=== PATIENT | female | born 1945 | race Caucasian/White ===

== ENCOUNTER → 2017-04-19 19:50 | Emergency (ER) | payer MEDICARE, BC ==
[~2017-04-19 19:50] MED LIST: Lidocaine 1%* 5 ML VIAL INJ ONE
--- OUTSIDE RECORDS SUMMARY | 2017-04-19 20:04 | XMS REPORT ---
:1945 External Reference #:[id number] Author Organization [facility] Address [address] [place] [address] Phone [phone] Care Team Providers Name Role Phone Hemanth Mederos M.D. Care Team Information Longitudinal Float Operator Unavailable Payers Type Date Identification Numbers Payment Provider Subscriber Medicare Primary Effective: Policy Number: Medicare - Bswnini Stout 2012 [id number] [facility] PayID: [id number] [address] [place] [address] [facility] Part [facility] Policy Number: [id number] [facility] Jose Elias [facility] Name: [facility] [address] PayID: [id number] [place] [address] Problems Date Description Provider Status Onset: 02/05/2011 Depressive disorder Hemanth Mederos M.D. Active Family History Date Family Member(s) Problem(s) Comments Father Diabetes Father CVA h/o multiple CVA's- age 74 Father Osteoarthritis Mother Hypertension Mother Osteoarthritis h/o hip replacement (for arthritis, not for fracture) Mother Osteoporosis probable Mother Mitral Valve Disorder prolapse Mother Dementia senile Children 2 adopted son and daughter Siblings 2 1 brother, 1 sister First Brother Osteoarthritis h/o knee replacement First Sister Osteoarthritis First Sister Mitral Valve Disorder prolapse Maternal Grandfather around age 94 old age Maternal Grandmother Cancer, Colon possible, not sure-- age 79 Social History Type Date Description Comments Lives With 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 Cigarette Use Never Smoked Cigarettes Smoking Patient has never smoked Allergies, Adverse Reactions, Alerts Date Description Reaction Status Severity Comments 11/18/2006 Codeine active Mild n/v 07/12/2015 Bee Sting active Moderate to Severe typically large local reaction, once had hives 12/16/2016 Sulfamethoxazole/Trim active Moderate N/V, Extreme ethoprim Fatigue Medications Medication Date Status Form Strength Qnty SIG Indications Ordering Provider Flonase Allergy 03/31 Active Suspension 50mcg/Act 9.900 1 to 2 J06.9 ml sprays in Shortle, both nares BLOCK CUTTER once a day for no more than one week. Psyllium Husk 08/25 Active Powder Thomas Mederos M.D. Venlafaxine HCL 07/29 Active Caps ER 37.5mg 90cap Take One 24HR s Capsule By P. Mouth Every Blegen, Other Day M.D. Alternating With The 75 MG Dose as Directed Flaxseed Oil 01/28 Active Capsules 1000mg 1 by mouth every day Thomas Mederos M.D. Vitamin D3 09/03 Active Capsules 1000Unit 2 by mouth every day Thomas Mederos M.D. Vitamin B-12 04/26 Active Tablets Sub 1000mcg 1 PO Every Other Day Thomas Mederos M.D. Effexor XR 12/17 Active Caps ER 75mg 90cap Take One 24HR s Capsule By P. Mouth Every Blegen, Day M.DAnitha Eye Vitamins Active Tablets (Areds + Unknown /0000 other vitamin) Azithromycin 03/31 Hx Tablets 250mg 6tabs 2 tabs J06.9 today. 1 tab Shortle, - daily for BLOCK CUTTER 04/07 following 4 days. Doxycycline 01/03 Hx Capsules 100mg 2caps 2 tab by S40.261A Shawnti Monohydrate /2016 mouth now Collin Andino, - ANALYSIS ANALYST-C 02/02 Sulfamethoxazol 11/10 Hx Tablets 800-160mg 14tab 1 by mouth Hemanth e/Trimethoprim s twice a day P. DS - x 7 days for Blegen, 12/14 uti- please M.DAnitha /2016 fill now Cephalexin 11/11 Hx Tablets 500mg 21tab take 1 s tablet by Santo, - mouth three ANALYSIS ANALYST-C 01/28 times a day x 7 days Prednisone 11/01 Hx Tablets 20mg 10tab take 2 tabs L23.9 s by mouth Santo, - every day x ANALYSIS ANALYST-C 01/28 5 Mupirocin 11/01 Hx Ointment 2% 22gm apply a L23.9 small amount Santo, - to affected ANALYSIS ANALYST-C 01/28 area(s) daily Sudafed 10/14 Hx Tablets 30mg 30tab 1 tab by Sara Stone s mouth three [place]ks - times a day , 11/01 pressure Augmentin 10/14 Hx Tablets 875-125mg 14tab 1 take by Sara Stone s mouth tablet [place]ks - every 12 , 11/01 hours for days for infection Zostavax 09/03 Hx Solution [id number]/ 1unit shingles Rec 0.65ML s vaccine as P. - directed Blegen, 01/28 M.D. Calcium 500+D 12/22 Hx Tablets 500-200mg 1 PO qd -Unit P. - Blegen, 08/25 M.D. Fish Oil 02/10 Hx Capsules P. - Blegen, 01/28 M.D. Flaxseed Oil 02/10 Hx Capsules 1 po qd P. - Blegen, 12/22 M.D. Venlafaxine HCL 02/13 Hx Tablets ER 37.5mg 180ta One To Two 24HR bs PO qd as P. - Directed Blegen, 12/17 M.D. Venlafaxine HCL 05/02 Hx Tablets 37.5mg 60tab one po bid s then taper P. - off as Blegen, 02/12 directed M.D. Effexor 11/20 Hx Tablets 37.5mg 30tab 1 po qd Coretta s A. - Gema, 05/02 F.N.P.C. /2009 Effexor 03/09 Hx Tablets 37.5mg 30tab 1 po bid x 1 s week then 1 P. - po qd x 1 Blegen, 05/26 week then M.D. 1/2 po qd x 1 week then 1/2 po qod x 1 week Nystatin 11/18 Hx Cream 100,000Un 30gm Apply To 112.9 Coretta its/GM Affected A. - Area bid To Gema, 07/17 tid After F.N.P.C. Cleasnsing And Drying Well Triaminicolone 11/18 Hx 30gm apply bid to 782.1 Coretta 1% Cream /2006 affected A. - areas Gema, 07/17 F.N.P.C. Effexor XR 02/25 Hx Capsules 37.5mg 90cap one po qd In s Addition To P. - 75 MG as Blegen, 02/17 Directed M.D. Effexor XR 03/29 Hx Capsules 75mg 90cap one qd s Felicia Melara, 02/12 M.D. Effexor XR 12/16 Hx Capsules 37.5mg 60cap One To Two s PO qd as P. - Directed Blegen, 03/29 M.D. Claritin D 12 10/25 Hx 12Hour 60uni 1 PO Q ts Hours prn P. - Allergic Blegen, 07/17 Rhinitis M.D. Nasonex Nasal 10/25 Hx Inhaler 17Gra 2 Sprays Hemanth Inhaler m Each Nostril P. - Daily Blegen, 07/17 M.D. Effexor 09/13 Hx 37.5mg 30uni one po bid ts for 1 week P. - then one po Blegen, 07/09 qd for 1 M.D. /2004 wk, then one po qod for 1 week Premarin 00 Hx Tablets 0.625mg 1 PO qd Unknown /0000 - 02/05 Immunizations CPT Code Status Date Vaccine Lot # 11974 Given 12/16/2016 Influenza Vaccine High Dose PF [id number] 47401 Given 01/29/2016 Influenza Vaccine High Dose PF [id number] 69604 Given 09/04/2015 Zoster Vaccine 06165 Given 07/12/2015 Tdap (Adacel) [id number] 27174 Given 07/12/2015 Prevnar-13 Pneumococcal Conjugate Vaccine [id number] 77275 Given 01/29/2015 Influenza Virus Vaccine, Quadrivalent, 3 Yr > Quad, Preserv Free 96757 Given 01/23/2014 Pneumovax 23 (PPSV23) 65+ years or high risk 2 to 64 year old 11603 Given 12/22/2012 Influenza Vaccine-Preservative Free 3 Yrs And [id number] Above Vital Signs Date Vital Result Comment 04/07/2017 Weight 148.00 lb Weight in kg's 67.133 BP Systolic 110 mmHg BP Diastolic 70 mmHg Heart Rate 72 /min Body Temperature 97.7 F Respiratory Rate 14 /min 03/31/2017 Weight 148.00 lb Weight in kg's 67.133 BP Systolic 110 mmHg BP Diastolic 70 mmHg Heart Rate 74 /min Body Temperature 96.9 F Respiratory Rate 14 /min O2 % BldC Oximetry 98 % 01/03/2017 Weight 145.00 lb Weight in kg's 65.772 Heart Rate 100 /min Respiratory Rate 18 /min O2 % BldC Oximetry 97 % 12/16/2016 Weight 142.00 lb Weight in kg's 64.411 BP Systolic 122 mmHg BP Diastolic 80 mmHg Heart Rate 84 /min Body Temperature 97.8 F Respiratory Rate 16 /min 11/10/2016 Weight 143.00 lb Weight in kg's 64.865 BP Systolic 110 mmHg BP Diastolic 72 mmHg Heart Rate 72 /min Body Temperature 97.8 F Respiratory Rate 16 /min 08/27/2016 Weight 145.00 lb Weight in kg's 65.772 BP Systolic 100 mmHg BP Diastolic 70 mmHg Heart Rate 63 /min Body Temperature 97.5 F Respiratory Rate 12 /min 07/29/2016 Weight 145.00 lb Weight in kg's 65.772 BP Systolic 122 mmHg BP Diastolic 78 mmHg Heart Rate 64 /min Body Temperature 97.0 F Respiratory Rate 20 /min Height 60 inches 5'0" BMI (Body Mass Index) 28.3 kg/m2 01/29/2016 BP Systolic 121 mmHg BP Diastolic 77 mmHg Heart Rate 68 /min Body Temperature 97.1 F 11/12/2015 Weight 145.00 lb Weight in kg's 65.772 BP Systolic 110 mmHg BP Diastolic 70 mmHg Heart Rate 60 /min Body Temperature 97.7 F Respiratory Rate 16 /min 11/02/2015 Weight 144.00 lb Weight in kg's 65.318 BP Systolic 138 mmHg BP Diastolic 78 mmHg Heart Rate 68 /min Body Temperature 97.7 F Respiratory Rate 16 /min O2 % BldC Oximetry 98 % 10/15/2015 Weight 145.00 lb Weight in kg's 65.772 BP Systolic 116 mmHg BP Diastolic 72 mmHg Heart Rate 75 /min Body Temperature 98.6 F O2 % BldC Oximetry 96 % 09/04/2015 Weight 146.00 lb Weight in kg's 66.226 BP Systolic 102 mmHg BP Diastolic 68 mmHg Heart Rate 80 /min 07/12/2015 Weight 149.00 lb Weight in kg's 67.586 BP Systolic 106 mmHg BP Diastolic 72 mmHg Heart Rate 60 /min Height 60 inches 5'0" BMI (Body Mass Index) 29.1 kg/m2 03/27/2015 Weight 144.00 lb Weight in kg's 65.318 BP Systolic 102 mmHg BP Diastolic 80 mmHg Heart Rate 56 /min 06/13/2014 Weight 148.00 lb Weight in kg's 67.133 BP Systolic 128 mmHg BP Diastolic 76 mmHg Heart Rate 64 /min 12/22/2013 Weight 143.00 lb Weight in kg's 64.865 BP Systolic 126 mmHg BP Diastolic 84 mmHg Heart Rate 72 /min Height 60 inches 5'0" BMI (Body Mass Index) 27.9 kg/m2 12/22/2012 Weight 144.00 lb Weight in kg's 65.318 BP Systolic 130 mmHg BP Diastolic 70 mmHg Heart Rate 68 /min 02/11/2012 Weight 146.00 lb Weight in kg's 66.226 BP Systolic 122 mmHg repeat 128/84 BP Diastolic 88 mmHg repeat 128/84 Heart Rate 60 /min Height 60 inches 5'0" BMI (Body Mass Index) 28.5 kg/m2 02/05/2011 Weight 140.00 lb Weight in kg's 63.504 BP Systolic 110 mmHg BP Diastolic 62 mmHg Heart Rate 60 /min Height 60 inches 5'0" BMI (Body Mass Index) 27.3 kg/m2 07/17/2010 Weight 143.00 lb Weight in kg's 64.865 BP Systolic 118 mmHg BP Diastolic 70 mmHg Heart Rate 64 /min Body Temperature 98.0 F 03/18/2010 Weight 142.00 lb Weight in kg's 64.411 BP Systolic 120 mmHg BP Diastolic 70 mmHg Heart Rate 80 /min 02/13/2010 Weight 140.00 lb Weight in kg's 63.504 BP Systolic 124 mmHg BP Diastolic 80 mmHg Heart Rate 68 /min 05/02/2009 Weight 147.00 lb Weight in kg's 66.679 BP Systolic 130 mmHg BP Diastolic 80 mmHg Heart Rate 68 /min 06/20/2008 Weight 144.00 lb Weight in kg's 65.318 BP Systolic 120 mmHg BP Diastolic 70 mmHg Heart Rate 76 /min 11/15/2007 Weight 143.00 lb Weight in kg's 64.865 BP Systolic 114 mmHg BP Diastolic 60 mmHg Heart Rate 60 /min 03/17/2007 BP Systolic 120 mmHg BP Diastolic 70 mmHg Body Temperature 98.7 F 03/09/2007 Weight 143.00 lb Weight in kg's 64.865 BP Systolic 104 mmHg BP Diastolic 64 mmHg Heart Rate 66 /min 02/17/2007 Weight 144.00 lb Weight in kg's 65.318 BP Systolic 110 mmHg BP Diastolic 74 mmHg Heart Rate 76 /min 11/18/2006 Weight 142.00 lb Weight in kg's 64.411 BP Systolic 110 mmHg BP Diastolic 62 mmHg Heart Rate 70 /min 06/30/2006 Weight 138.00 lb Weight in kg's 62.597 BP Systolic 110 mmHg BP Diastolic 60 mmHg Heart Rate 64 /min 02/25/2006 Weight 139.00 lb Weight in kg's 63.050 BP Systolic 110 mmHg BP Diastolic 60 mmHg Heart Rate 80 /min 12/24/2004 Weight 133.00 lb Weight in kg's 60.329 BP Systolic 122 mmHg BP Diastolic 80 mmHg 07/09/2004 Weight 137.00 lb Weight in kg's 62.143 BP Systolic 120 mmHg BP Diastolic 80 mmHg Body Temperature 97.0 F 09/26/2003 Weight 125.00 lb Weight in kg's 56.700 BP Systolic 118 mmHg BP Diastolic 61 mmHg Heart Rate 60 /min 06/28/2003 Weight 128.00 lb Weight in kg's 58.061 BP Systolic 123 mmHg BP Diastolic 69 mmHg Heart Rate 59 /min 11/29/2002 Weight 127.00 lb Weight in kg's 57.607 BP Systolic 104 mmHg BP Diastolic 64 mmHg 06/21/2002 Weight 128.00 lb Weight in kg's 58.061 BP Systolic 100 mmHg BP Diastolic 60 mmHg 10/25/2001 Weight 122.00 lb BP Systolic 100 mmHg BP Diastolic 70 mmHg Body Temperature 97.4 F 09/13/2001 Weight 125.50 lb BP Systolic 112 mmHg BP Diastolic 64 mmHg Heart Rate 66 /min Results Test Date Test Result H/L Range Note Urine DIP 04/07/2017 Leukocytes neg Neg Urine Nitrites neg Neg Urobilinogen norm Norm Total Protein, Urine trace Neg Urine pH 5 5-6 Urine Blood trace Neg Specific Dustin 1.020 1.01-1.02 Urine Ketones neg Neg Urine Bilirubin neg Neg Urine Glucose norm Norm Laboratory test finding 12/16/2016 Hepatitis C Antibody Nonreactive Nonreactive 1 Comp Metabolic Panel 12/16/2016 Sodium 137 mmol/L 133-145 Potassium 4.6 mmol/L 3.5-5.0 Chloride 101 mmol/L 101-111 Co2 Carbon Dioxide 32 mmol/L 22-32 Anion Gap 4 mmol/L 2-11 Glucose 83 mg/dL 70-100 Blood Urea Nitrogen 11 mg/dL 6-24 Creatinine 0.68 mg/dL 0.51-0.95 BUN/Creatinine Ratio 16.2 8-20 Calcium 10.1 mg/dL 8.6-10.3 Total Protein 6.7 g/dL 6.4-8.9 Albumin 4.2 g/dL 3.2-5.2 Globulin 2.5 g/dL 2-4 Albumin/Globulin Ratio 1.7 1-3 Total Bilirubin 0.40 mg/dL 0.2-1.0 Alkaline Phosphatase 104 U/L 34-104 Alt 22 U/L 7-52 Ast 26 U/L 13-39 Egfr Non- 86.0 >60 Egfr 110.7 >60 2 Laboratory test finding 12/16/2016 Urine Culture And SEE RESULT BELOW 3 Sensitivities Urine DIP 12/16/2016 Leukocytes neg Neg Urine Nitrites neg Neg Urobilinogen norm Norm Total Protein, Urine trace Neg Urine pH 5.0 5-6 Urine Blood neg Neg Specific Dustin 1.010 1.01-1.02 Urine Ketones neg Neg Urine Bilirubin neg Neg Urine Glucose norm Norm Laboratory test finding 11/10/2016 Urine Culture And SEE RESULT BELOW 4 Sensitivities Urine DIP 11/10/2016 Leukocytes +++ Neg Urine Nitrites neg Neg Urobilinogen neg Norm Total Protein, Urine neg Neg Urine pH 7.0 High 5-6 Urine Blood 250 High Neg Specific Dustin 1.000 Low 1.01-1.02 Urine Ketones neg Neg Urine Bilirubin neg Neg Urine Glucose neg Norm Laboratory test finding 11/04/2016 Calcium Ionized 5.15 mg/dL 4.65-5.28 Pthi 11/04/2016 Calcium (PTH Intact) 9.7 mg/dL 8.6-10.3 PTH Intact 8.2 pmol/L 1.3-9.3 Alkaline Phos Isoenzymes 08/27/2016 Alkaline Phosphatase 129 U/L 55 - 142 Alp Liver 1% 61.6 % 27.8-76.3 Alp Liver 1 79.5 IU/L 16.2-70.2 Alp Liver 2% 6.6 % 0.0-8.0 Alp Liver 2 8.5 IU/L 0.0-5.8 Alp Bone % 31.8 % 19.1-67.7 Alp Bone 41.0 IU/L 12.1-42.7 Alp Intestine % 0.0 % 0.0-20.6 Alp Intestine 0.0 IU/L 0.0-11.0 Alp Placental NotPresent 5 Laboratory test finding 08/27/2016 Calcium Ionized 5.00 mg/dL 4.65-5.28 Liver Function Panel 08/27/2016 Total Protein 7.2 g/dL 6.4-8.9 Albumin 4.4 g/dL 3.2-5.2 Globulin 2.8 g/dL 2-4 Albumin/Globulin Ratio 1.6 1-3 Total Bilirubin 0.60 mg/dL 0.2-1.0 Direct Bilirubin 0.10 mg/dL 0.03-0.18 Indirect Bilirubin 0.5 mg/dL 0.3-1.0 Alkaline Phosphatase 119 U/L High 34-104 Alt 20 U/L 7-52 Ast 22 U/L 13-39 Pthi 08/27/2016 Calcium (PTH Intact) 10.1 mg/dL 8.6-10.3 PTH Intact 9.3 pmol/L 1.3-9.3 Laboratory test finding 07/29/2016 TSH (Thyroid Stim Horm) 2.12 mcIU/mL 0.34-5.60 6 Free T4 (Free Thyroxine) 0.92 ng/dL 0.61-1.12 7 Vitamin D Total 25(Oh) 48.0 ng/mL 30-50 8 Vitamin B12 752 pg/mL 180-914 9 Comp Metabolic Panel 07/29/2016 Sodium 138 mmol/L 133-145 Potassium 5.0 mmol/L 3.5-5.0 Chloride 101 mmol/L 101-111 Co2 Carbon Dioxide 31 mmol/L 22-32 Anion Gap 6 mmol/L 2-11 Glucose 97 mg/dL 70-100 Blood Urea Nitrogen 15 mg/dL 6-24 Creatinine 0.72 mg/dL 0.51-0.95 BUN/Creatinine Ratio 20.8 High 8-20 Calcium 11.3 mg/dL High 8.6-10.3 Total Protein 7.7 g/dL 6.4-8.9 Albumin 4.6 g/dL 3.2-5.2 Globulin 3.1 g/dL 2-4 Albumin/Globulin Ratio 1.5 1-3 Total Bilirubin 0.60 mg/dL 0.2-1.0 Alkaline Phosphatase 126 U/L High 34-104 Alt 28 U/L 7-52 Ast 27 U/L 13-39 Egfr Non- 80.6 >60 Egfr 103.6 >60 10 CBC Auto Diff 07/29/2016 White Blood Count 4.9 10^3/uL 3.5-10.8 Red Blood Count 5.14 10^6/uL 4.0-5.4 Hemoglobin 14.5 g/dL 12.0-16.0 Hematocrit 44 % 35-47 Mean Corpuscular Volume 87 fL 80-97 Mean Corpuscular Hemoglobin 28 pg 27-31 Mean Corpuscular HGB Conc 33 g/dL 31-36 Red Cell Distribution Width 14 % 10.5-15 Platelet Count 269 10^3/uL 150-450 Mean Platelet Volume 8 um3 7.4-10.4 Abs Neutrophils 2.9 10^3/uL 1.5-7.7 Abs Lymphocytes 1.6 10^3/uL 1.0-4.8 Abs Monocytes 0.4 10^3/uL 0-0.8 Abs Eosinophils 0.1 10^3/uL 0-0.6 Abs Basophils 0 10^3/uL 0-0.2 Abs Nucleated RBC 0.01 10^3/uL Granulocyte % 58.2 % 38-83 Lymphocyte % 32.3 % 25-47 Monocyte % 7.2 % 1-9 Eosinophil % 1.4 % 0-6 Basophil % 0.9 % 0-2 Nucleated Red Blood Cells % 0.1 Lipid Profile (Trig/Chol/HDL) 07/29/2016 Triglycerides 90 mg/dL 11 Cholesterol 227 mg/dL 12 HDL Cholesterol 66.1 mg/dL 13 LDL Cholesterol 143 mg/dL 14 Laboratory test finding 07/29/2016 T3 Free 4.20 pg/mL High 2.5-3.9 15 Lipase 13 U/L 11.0-82.0 16 Amylase 53 U/L 29-103 17 Laboratory test 07/29/2016 Helico Pylori Negative Negative 18, 19 finding Antigen- Stool Laboratory test 01/29/2016 Vitamin B12 1103 pg/mL High 180-914 20 finding Vitamin D Total 25(Oh) 45.2 ng/mL 30-50 21 Lipid Profile (Trig/Chol/HDL) 01/18/2016 Triglycerides 106 mg/dL 22, 23 Cholesterol 209 mg/dL 22, 24 HDL Cholesterol 53.4 mg/dL 22, 25 LDL Cholesterol 134 mg/dL 22, 26 Comp Metabolic Panel 01/18/2016 Sodium 138 mmol/L 133-145 22 Potassium 4.3 mmol/L 3.5-5.0 22 Chloride 102 mmol/L 101-111 22 Co2 Carbon Dioxide 31 mmol/L 22-32 22 Anion Gap 5 mmol/L 2-11 22 Glucose 100 mg/dL 70-100 22 Blood Urea Nitrogen 16 mg/dL 6-24 22 Creatinine 0.73 mg/dL 0.51-0.95 22 BUN/Creatinine Ratio 21.9 High 8-20 22 Calcium 9.8 mg/dL 8.6-10.3 22 Total Protein 6.6 g/dL 6.4-8.9 22 Albumin 4.0 g/dL 3.2-5.2 22 Globulin 2.6 g/dL 2-4 22 Albumin/Globulin Ratio 1.5 1-3 22 Total Bilirubin 0.60 mg/dL 0.2-1.0 22 Alkaline Phosphatase 112 U/L High 34-104 22 Alt 18 U/L 7-52 22 Ast 19 U/L 13-39 22 Egfr Non- 79.3 >60 22 Egfr 102.0 >60 22, 27 Laboratory test 01/18/2016 Hemoglobin A1c 5.4 % Less than 22, 28 finding 6.0 Laboratory test 11/12/2015 Surgical Pathology SEE RESULT 29 finding BELOW Laboratory test 07/12/2015 Hemoglobin A1c (Glyco 5.4 % Less than 30 finding HGB) 6.0 Lipid Profile 07/12/2015 Triglycerides 99 mg/dL 31 (Trig/Chol/HDL) Cholesterol 235 mg/dL 32 HDL Cholesterol 63.7 mg/dL 33 LDL Cholesterol 152 mg/dL 34 Basic Metabolic Panel 07/02/2015 Sodium 140 mmol/L 133-145 Potassium 4.7 mmol/L 3.5-5.0 Chloride 105 mmol/L 101-111 Co2 Carbon Dioxide 29 mmol/L 22-32 Anion Gap 6 mmol/L 2-11 Glucose 109 mg/dL High 70-100 Blood Urea Nitrogen 19 mg/dL 6-24 Creatinine 0.76 mg/dL 0.51-0.95 BUN/Creatinine Ratio 25.0 High 8-20 Calcium 9.9 mg/dL 8.6-10.3 Egfr Non- 75.9 >60 Egfr 97.6 >60 35 Laboratory test finding 07/02/2015 Vitamin B12 808 pg/mL 180-914 36 TSH (Thyroid Stim Horm) 1.90 ?IU/mL 0.34-5.60 Free T4 (Free Thyroxine) 0.88 ng/dL 0.61-1.12 T3 Free 3.60 pg/mL 2.5-3.9 Vitamin D Total 25(Oh) 24.6 ng/mL Low 30-50 Laboratory test 04/26/2015 Cytology Non-Film Replacement Orderer SEE RESULT BELOW 37 finding Laboratory test 04/17/2015 TSH (Thyroid 2.42 ?IU/mL 0.34-5.60 finding Stimulating Horm) Free T3 3.50 pg/mL 2.5-3.9 Pthi 04/17/2015 Calcium (PTH Intact) 9.6 mg/dL 8.6-10.3 PTH Intact 8.8 pmol/L 1.3-9.3 Laboratory test finding 04/17/2015 Calcium Ionized 4.84 mg/dL 4.65-5.28 Protein Electrophoresis 04/17/2015 Total Protein(Pep) 6.7 g/dL 6.3 - 7.9 Albumin 3.4 g/dL 3.4-4.7 Alpha-1 Globulin 0.2 g/dL 0.1-0.3 Alpha-2 Globulin 0.9 g/dL 0.6-1.0 Beta Globulin 0.9 g/dL 0.7-1.2 Gamma Globulin 1.3 g/dL 0.6-1.6 Albumin/Globulin Ratio 1.02 Impression See Comment 38 Laboratory test finding 04/17/2015 Thyroperoxidase AB 1.24 IU/mL <9 Thyroglobulin Antibody <1.8 IU/mL <4.0 39 Laboratory test finding 03/27/2015 TSH (Thyroid Stim Horm) 1.45 ?IU/mL 0.34-5.60 Free T4 (Free Thyroxine) 1.04 ng/mL 0.61-1.12 Laboratory test finding 03/27/2015 Vitamin B12 257 pg/mL 180-914 40 Vitamin D Total 25(Oh) 30.0 ng/mL 30-50 T3 Free 4.80 pg/mL High 2.5-3.9 CBC Auto Diff 03/27/2015 White Blood Count 4.2 10^3/uL 3.5-10.8 Red Blood Count 5.24 10^6/uL 4.0-5.4 Hemoglobin 15.3 g/dL 12.0-16.0 Hematocrit 47 % 35-47 Mean Corpuscular Volume 89 fL 80-97 Mean Corpuscular Hemoglobin 29 pg 27-31 Mean Corpuscular HGB Conc 33 g/dL 31-36 Red Cell Distribution Width 13 % 10.5-15 Platelet Count 265 10^3/uL 150-450 Mean Platelet Volume 7 um3 Low 7.4-10.4 Abs Neutrophils 2.6 10^3/uL 1.5-7.7 Abs Lymphocytes 1.2 10^3/uL 1.0-4.8 Abs Monocytes 0.4 10^3/uL 0-0.8 Abs Eosinophils 0 10^3/uL 0-0.6 Abs Basophils 0 10^3/uL 0-0.2 Abs Nucleated RBC 0 10^3/uL Granulocyte % 61.9 % 38-83 Lymphocyte % 27.8 % 25-47 Monocyte % 8.5 % 1-9 Eosinophil % 1.1 % 0-6 Basophil % 0.7 % 0-2 Nucleated Red Blood Cells % 0.1 Comp Metabolic Panel 03/27/2015 Sodium 141 mmol/L 133-145 Potassium 4.8 mmol/L 3.5-5.0 Chloride 103 mmol/L 101-111 Co2 Carbon Dioxide 32 mmol/L 22-32 Anion Gap 6 mmol/L 2-11 Glucose 108 mg/dL High 70-100 Blood Urea Nitrogen 12 mg/dL 6-24 Creatinine 0.77 mg/dL 0.51-0.95 BUN/Creatinine Ratio 15.6 8-20 Calcium 10.7 mg/dL High 8.6-10.3 Total Protein 7.6 g/dL 6.4-8.9 Albumin 4.6 g/dL 3.2-5.2 Globulin 3.0 g/dL 2-4 Albumin/Globulin Ratio 1.5 1-3 Total Bilirubin 0.70 mg/dL 0.2-1.0 Alkaline Phosphatase 115 U/L High 34-104 Alt 22 U/L 7-52 Ast 26 U/L 13-39 Egfr Non- 74.8 >60 Egfr 96.2 >60 41 Urine DIP 02/05/2011 Leukocytes neg Neg Urine Nitrites neg Neg Urine pH 5-6 5-6 Total Protein, Urine trace Neg Urine Glucose norm Norm Urine Ketones neg Neg Urobilinogen norm Norm Urine Bilirubin neg Neg Urine Blood neg Neg Specific Dustin n/a Low 1.01-1.02 GFR (Calculated) 06/21/2008 GFR (Calculated) >60 42, 43 Laboratory test finding 06/21/2008 TSH (Thyrotropin) 1.780 uIU/ml 0.350- 5.500 42 T-4 Free 1.0 ng/dL 0.8-1.8 42 Magnesium 2.3 mg/dL 1.7-2.7 42 CBC 06/21/2008 WBC 5.9 x103 4.3-10.9 42 RBC 4.52 x106 3.80-5.30 42 Hemoglobin 13.1 g/dL 11.8-15.8 42 Hematocrit 39.8 % 35.0-47.0 42 MCV 88.1 fl 82.0-98.0 42 MCH 29.0 pg 27.5-33.5 42 MCHC 32.9 g/dL 32.0-36.0 42 RDW 13.4 % 11.5-14.5 42 Platelet Count 275 x103 130-400 42 MPV 9.9 fl 6.5-10.5 42 Segmented Neutrophils 61.4 % 44.0-74.0 42 Lymphocytes 28.8 % 15.0-45.0 42 Monocytes 8.3 % 2.0-13.0 42 Eosinophils 1.2 % 0.0-6.0 42 Basophils 0.3 % 0.0-2.0 42 Neutrophil Absolute 3.6 x103 1.4-7.0 42 Lymphocytes Absolute 1.7 x103 1.0-3.4 42 Monocyte Absolute 0.5 x103 0.2-1.0 42 Eosinophil Absolute 0.1 x103 0.0-0.5 42 Basophil Absolute 0.0 x103 0.0-0.2 42 Comprehensive Metabolic 06/21/2008 Glucose 94 mg/dL 70-100 42 BUN 17 mg/dL 4-18 42 Creatinine, Serum 1.0 mg/dL 0.5-1.2 42 Sodium 139 mmol/L 136-146 42 Potassium 4.6 mmol/L 3.5-5.3 42 Chloride 102 mmol/L 98-110 42 Carbon Dioxide 30 mmol/L 20-32 42 Albumin 4.3 g/dL 3.5-4.7 42 Protein, Total 7.4 g/dL 6.4-8.3 42 Calcium 10.7 mg/dL High 8.4-10.4 42 Alkaline Phosphatase 149 U/L High 10-118 42 Sgot (Ast) 36 U/L 3-40 42 SGPT (Alt) 32 U/L 7-50 42 Bilirubin, Total 0.30 mg/dL 0.30-1.20 42 Alkaline Phos Iso 03/22/2007 Alkaline Phosphatase, S 132 IU/L 25-150 Liver Fraction: 75 % 26-86 Bone Fraction: 25 % 11-68 Intestinal Frac.: 0 % 0-16 Laboratory test finding 03/09/2007 Surgical Pathology SEE NOTE 44 CBC W/Manual Diff 02/17/2007 Manual Differential PERFORMED WBC 5.3 x103 4.3-10.9 RBC 4.43 x106 3.80-5.30 Hemoglobin 12.7 g/dL 11.8-15.8 Hematocrit 38.3 % 35.0-47.0 MCV 86.5 fl 82.0-98.0 MCH 28.7 pg 27.5-33.5 MCHC 33.2 g/dL 32.0-36.0 RDW 13.3 % 11.5-14.5 Platelet Count 271 x103 130-400 MPV 10.4 fl 6.5-10.5 Comprehensive Metabolic 02/17/2007 Glucose 87 mg/dL 70-100 BUN 18 mg/dL 4-18 Creatinine, Serum 1.0 mg/dL 0.5-1.2 Sodium 140 mmol/L 136-146 Potassium 5.1 mmol/L 3.5-5.3 Chloride 103 mmol/L 98-110 Carbon Dioxide 28 mmol/L 20-32 Albumin 4.2 g/dL 3.5-4.7 Protein, Total 7.2 g/dL 6.4-8.2 Calcium 10.2 mg/dL 8.4-10.4 Alkaline Phosphatase 138 U/L High 10-118 Sgot (Ast) 30 U/L 3-40 SGPT (Alt) 28 U/L 7-50 Bilirubin, Total 0.20 mg/dL Low 0.30-1.20 Laboratory test finding 02/17/2007 TSH (Thyrotropin) 1.790 uIU/ml 0.350- 5.500 T-4 Free 0.9 ng/dL 0.8-1.8 Vitamin B-12 437 pg/mL 45 GFR (Calculated) >60 46 Feflex Diff+Morph For CBC4D 02/17/2007 Segmented Neutrophils 68.0 % 44.0- 74.0 Band 0.0 % 0.0-4.0 Lymphocytes 22.0 % 15.0-45.0 Monocytes 9.0 % 2.0-13.0 Eosinophils 1.0 % 0.0-6.0 Basophils 0.0 % 0.0-2.0 Neutrophil Absolute 3.6 x103 1.4-7.0 Lymphocytes Absolute 1.2 x103 1.0-3.4 Monocyte Absolute 0.5 x103 0.2-1.0 Eosinophil Absolute 0.1 x103 0.0-0.5 Basophil Absolute 0.0 x103 0.0-0.2 Laboratory test finding 12/24/2000 TSH (Thyrotropin) 1.48 uIU/ml 0.49 - 4.67 1 [id number] 2 Because ethnic data is not always readily available, this report includes an eGFR for both -Americans and non- Americans. The National Kidney Disease Education Program (NKDEP) does not endorse the use of the MDRD equation for patients that are not between the ages of 18 and 70, are , have extremes of body size, muscle mass, or nutritional status, or are non- or non-. According to the [employer], irrespective of diagnosis, the stage of the disease is based on the level of kidney function: Stage Description GFR(mL/min/1.73 m(2)) 1 Kidney damage with normal or decreased GFR 90 2 Kidney damage with mild decrease in GFR 60-89 3 Moderate decrease in GFR 30-59 4 Severe decrease in GFR 15-29 5 Kidney failure <15 (or dialysis) 3 SEE RESULT BELOW Name: LUDIVINA STOUT : [address]: Hemanth Mederos MD Acct: [id number] Unit: [id number] AGE: 70 Location: [facility] Re12/16/16 SEX: F Status: REG REF SPEC: [id number] SULLY: 12/16/16-[address] [facility] [address]: Hemanth Mederos MD REQ: [id number] RECD: 12/16/16 STATUS: KYLIE FERNÁNDEZ DR: Hardeep Palomo MD _ SOURCE: URINE SPDESC: ORDERED: Urine Culture COMMENTS: Copy Result to: HARDEEP PALOMO ([id number]) Urine Source: Random Procedure Result Reported Site Urine Culture Final 12/18/16- 925 ML No Growth (<1,000 CFU/mL) * ML - [facility] ([facility]) . END OF REPORT * ML=Testing performed at Main Lab DEPARTMENT OF PATHOLOGY, [address] [place] [address] Huang Multani M.D. Director [facility] # [id number] 4 SEE RESULT BELOW Name: LUDIVINA STOUT : [address]: Hemanth Mederos MD Acct: [id number] Unit: [id number] AGE: 70 Location: [facility] Re11/10/16 SEX: F Status: REG REF SPEC: [id number] SULLY: 11/10/16-[address] [facility] [address]: Hemanth Mederos MD REQ: [id number] RECD: 11/10/16 STATUS: COMP _ SOURCE: URINE SPDC: ORDERED: Urine Culture COMMENTS: [id number] Urine Source: Random Procedure Result Reported Site Urine Culture Final 11/12/16- 08 ML Organism 1 ESCHERICHIA COLI [place] Count 75-100,000 (Many) CFU/ML 1. ESCHERICHIA COLI [facility].I.C. RX --------- ------ Ampicillin <=2 S Cefazolin <=4 S Cefepime <=1 S Ceftriaxone <=1 S Ciprofloxacin <=0.25 S Gentamicin <=1 S Levofloxacin <=0.12 S Meropenem <=0.25 S Nitrofurantoin <=16 S Tetracycline <=1 S Pipercillin/Tazobactam <=4 S Trimethoprim/Sulfamethoxazole <=20 S Amoxicillin/Clavulanic Acid <=2 S Aztreonam <=1 S Contact the Microbiology Department for any additional antibiotic reporting. * ML - [facility] ([facility]) . END OF REPORT * ML=Testing performed at [facility] DEPARTMENT OF PATHOLOGY, [address] [place] [address] Huang Multani M.D. Director [facility] # [id number] 5 REFERENCE VALUE Not present Test Performed by: [address] [id number] 6 [id number] Normal Range 180 to 914 Indeterminate Range 145 to 180 Deficient Range <145 10 Because ethnic data is not always readily available, this report includes an eGFR for both -Americans and non- Americans. The National Kidney Disease Education Program (NKDEP) does not endorse the use of the MDRD equation for patients that are not between the ages of 18 and 70, are , have extremes of body size, muscle mass, or nutritional status, or are non- or non-. According to the National Kidney Foundation, irrespective of diagnosis, the stage of the disease is based on the level of kidney function: Stage Description GFR(mL/min/1.73 m(2)) 1 Kidney damage with normal or decreased GFR 90 2 Kidney damage with mild decrease in GFR 60-89 3 Moderate decrease in GFR 30-59 4 Severe decrease in GFR 15-29 5 Kidney failure <15 (or dialysis) 11 Desirable <150 Borderline high 150-199 High 200-499 Very High >500 12 Desirable <200 Borderline high 200-239 High >239 13 Low <40 Desirable: 40-60 High: >60 14 Desirable: <100 mg/dL Near Optimal: 100-129 mg/dL Borderline High: 130-159 mg/dL High: 160-189 mg/dL Very High: >189 mg/dL 15 [id number] 19 Test Performed by: [address] [id number] 20 Normal Range 180 to 914 Indeterminate Range 145 to 180 Deficient Range <145 21 [id number] PT IS FASTING 23 Desirable <150 Borderline high 150-199 High 200-499 Very High >500 24 Desirable <200 Borderline high 200-239 High >239 25 Low <40 Desirable: 40-60 High: >60 26 Desirable: <100 mg/dL Near Optimal: 100-129 mg/dL Borderline High: 130-159 mg/dL High: 160-189 mg/dL Very High: >189 mg/dL 27 Because ethnic data is not always readily available, this report includes an eGFR for both -Americans and non- Americans. The National Kidney Disease Education Program (NKDEP) does not endorse the use of the MDRD equation for patients that are not between the ages of 18 and 70, are , have extremes of body size, muscle mass, or nutritional status, or are non- or non-. According to the National Kidney Foundation, irrespective of diagnosis, the stage of the disease is based on the level of kidney function: Stage Description GFR(mL/min/1.73 m(2)) 1 Kidney damage with normal or decreased GFR 90 2 Kidney damage with mild decrease in GFR 60-89 3 Moderate decrease in GFR 30-59 4 Severe decrease in GFR 15-29 5 Kidney failure <15 (or dialysis) 28 Therapeutic target for the treatment of diabetes Mellitus patients is <7% HBA1C, and in selective patients <6.0%.Please refer to [place] [employer] Diabetic care guidelines for further information. 29 SEE RESULT BELOW Name: LUDIVINA STOUT : [address]: Nataly Richardson NP Acct: [id number] Unit: [id number] AGE: 69 Location: [facility] Re11/12/15 SEX: F Status: REG REF SPEC: [id number] SULLY: 11/12/[address]: Nataly Richardson NP REQ: [id number] RECD: 11/13/15-1208 STATUS: SOUT _ ORDERED: PASS STAIN, [facility], LEVEL IV COMMENTS: [id number] FINAL DIAGNOSIS Skin, left thigh, biopsy: -- Eosinophilic spongiotic dermatitis; see comment. COMMENT: The histologic differential diagnosis includes a hypersensitivity reaction to a medication or other internal antigen, contact dermatitis, reaction to arthropod assault, or an early lesion of pemphigus or bullous pemphigoid. Clinical-pathologic correlation is recommended. CLINICAL HISTORY Unresolved rash. GROSS DESCRIPTION The specimen is received in formalin with no source identified and a requisition labeled, Punch Biopsy Left Thigh, and consists of a 0.2 cm colón-white circular skin punch excised to a depth of 0.2 cm, which is submitted entirely in one cassette. MICROSCOPIC DESCRIPTION Histologic sections show a punch biopsy of skin excised to include deep reticular dermis. Basket weave orthokeratosis is present overlying epidermis with mild spongiosis. A subepidermal cleft is focally present containing fibrin and eosinophils. Occasional eosinophils are present in the epidermis. Papillary dermal edema is present along with a perivascular inflammatory infiltrate composed of lymphocytes and eosinophils. Deeper levels of sectioning show similar histologic features. GMS and PAS stains, with appropriately reacting controls, are negative for fungal organisms. Signed (signature on file) Silvia Diaz MD 02/19 1100 END OF REPORT * ML=Testing performed at Main Lab DEPARTMENT OF PATHOLOGY, [address] [place] [address] Huang Multani M.D. Director [facility] # [id number] 30 Therapeutic target for the treatment of diabetes Mellitus patients is <7% HBA1C, and in selective patients <6.0%.Please refer to [place] [employer] Diabetic care guidelines for further information. 31 Desirable <150 Borderline high 150-199 High 200-499 Very High >500 32 Desirable <200 Borderline high 200-239 High >239 33 Low <40 Desirable: 40-60 High: >60 34 Desirable: <100 mg/dL Near Optimal: 100-129 mg/dL Borderline High: 130-159 mg/dL High: 160-189 mg/dL Very High: >189 mg/dL 35 Because ethnic data is not always readily available, this report includes an eGFR for both -Americans and non- Americans. The National Kidney Disease Education Program (NKDEP) does not endorse the use of the MDRD equation for patients that are not between the ages of 18 and 70, are , have extremes of body size, muscle mass, or nutritional status, or are non- or non-. According to the National Kidney Foundation, irrespective of diagnosis, the stage of the disease is based on the level of kidney function: Stage Description GFR(mL/min/1.73 m(2)) 1 Kidney damage with normal or decreased GFR 90 2 Kidney damage with mild decrease in GFR 60-89 3 Moderate decrease in GFR 30-59 4 Severe decrease in GFR 15-29 5 Kidney failure <15 (or dialysis) 36 Normal Range 180 to 914 Indeterminate Range 145 to 180 Deficient Range <145 37 SEE RESULT BELOW Name: LUDIVINA STOUT : [address]: Fausto Ramesh MD Acct: [id number] Unit: [id number] AGE: 69 Location: THYROID Re04/26/15 SEX: F Status: REG REF SPEC: [id number] SULLY: 04/26/15-[address] [facility] [address]: Dayo Jeffers MD REQ: [id number] RECD: 04/26/15-1200 STATUS: BARBI FERNÁNDEZ DR: Fausto Mederos MD _ ORDERED: FN ASP DEEP, FNA IMMEDIATE S FINAL DIAGNOSIS Thyroid, right upper pole, Ultrasound guided, fine needle aspiration: Benign thyroid nodule- colloid/hyperplastic type. ([place] Class II). The specimen demonstrates moderate watery colloid, an abundant amount of benign appearing follicular epithelium arranged in uniform sheets, medium sized follicles and only occasional small groups. No features of papillary carcinoma are seen. In this clinical setting the risk of malignancy is less than 3%. Clinical management of this thyroid nodule should be based on clinical and radiographic features as well as the above. THYROID RIGHT - US GUIDED FINE NEEDLE ASPIRATION CLINICAL HISTORY Right upper pole thyroid nodule 1.7 x 1.0 x 1.0 cm IMMEDIATE INTERPRETATION Pass 1-adequate CONTINUED ON NEXT PAGE * ML=Testing performed at Main Lab DEPARTMENT OF PATHOLOGY, [facility] [employer] [place], [place] [address] Huang Multani M.D. Director [facility] # [id number] RUN DATE: 04/26/15 [facility] LAB LIVE PAGE 2 Patient: LUDIVINA STOUT Apoorva [id number] (Continued) GROSS DESCRIPTION (Continued) GROSS DESCRIPTION 4- alcohol fixed slide(s) 1 - passes Signed (signature on file) Silvia Diaz MD 1208 END OF REPORT * ML=Testing performed at Main Lab DEPARTMENT OF PATHOLOGY, [facility] [employer] [place], [place] [address] Huang Multani M.D. Director [facility] # [id number] 38 RESULT: No apparent monoclonal protein on serum electrophoresis. Test Performed by: [facility] [place] [address] Stick [employer]: Aryan Hemphill II, M.D., Ph.D. 39 ADDITIONAL INFORMATION The thyroglobulin antibody testing method is an immunoenzymatic assay manufactured by [employer]. and performed on the [employer] DXI 800. Values obtained from different assay methods or kits may be different and cannot be used interchangeably. The results cannot be interpreted as absolute evidence for the presence or absence of malignant disease. Test Performed by: [facility] [place] [address] Stick Welder: Aryan Hemphill II, M.D., Ph.D. 40 Normal Range 180 to 914 Indeterminate Range 145 to 180 Deficient Range <145 41 Because ethnic data is not always readily available, this report includes an eGFR for both -Americans and non- Americans. The National Kidney Disease Education Program (NKDEP) does not endorse the use of the MDRD equation for patients that are not between the ages of 18 and 70, are , have extremes of body size, muscle mass, or nutritional status, or are non- or non-. According to the National Kidney Foundation, irrespective of diagnosis, the stage of the disease is based on the level of kidney function: Stage Description GFR(mL/min/1.73 m(2)) 1 Kidney damage with normal or decreased GFR 90 2 Kidney damage with mild decrease in GFR 60-89 3 Moderate decrease in GFR 30-59 4 Severe decrease in GFR 15-29 5 Kidney failure <15 (or dialysis) [address] HÉCTOR FLORES 43 mL/min/1.73m2 . Normal Function or Mild Renal Disease, if clinically at risk: >or=60 Moderately decreased: 30 - 59 Severely decreased: 15 - 29 Renal Failure: <15 . Please note that the MDRD equation requires an additional adjustment for -Americans (multiply the GFR result by 1.210). . Glomerular Filtration Rate (GFR) is estimated based on the MDRD equation, which assumes a steady state for creatinine ([place] Int Med 139/2 137-149, 2003), as recommended by the National Kidney Disease Education Program in conjunction with the National Institutes of Health and the National Kidney Foundation. . Clinical conditions in which it may be necessary to measure GFR by using clearance methods include extremes of age and body size, severe malnutrition or obesity, diseases of skeletal muscle, paraplegia or quadriplegia, vegetarian diet, rapidly changing kidney function, and calculation of the dose of potentially toxic drugs that are excreted by the kidneys. [address] [place], [employer] DEPARTMENT OF PATHOLOGY or Extension 7798 SURGICAL PATHOLOGY REPORT PATIENT: LUDIVINA STOUT : 1945 AGE: 61 Y SEX: F ACCT: [id number] PROCEDURE DATE: 03/09/2007 DATE RECEIVED: 03/10/2007 REQUESTING PHYSICIAN: HEMANTH MEDEROS MD LOCATION: [facility] Case No. [id number] FINAL DIAGNOSIS: SKIN, EXCISION LESION OF MID UPPER BACK: 1. 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 2. NO DIAGNOSTIC FUNGAL ORGANISMS IDENTIFIED UPON PAS FUNGAL STAIN. LDM/kb D GROSS DESCRIPTION: Received in formalin, labeled with the patient's name Ludivina Stout and also labeled with the lab reference #[id number], consists of a 0.4 x 0.4 x 0.2 cm off-white ragged punched segment of skin with an off center stretching to the margin 0.25 x 0.15 cm brown-white granular friable keratotic unevenly raised papule. The margin is painted with black ink. Totally submitted in one cassette. AP/kb D CLINICAL DATA: 90137 NONE PROVIDED SPECIMEN SUBMITTED: LESION, MID UPPER BACK ADDITIONAL COPIES SENT TO: Electronically Signed by: Signed Date MILDRED KEITA MD PATHOLOGIST 03/11/2007 15:31 Performed @ [facility], [address] [place] [id number] 45 Greater than or equal to 211 is normal. . 46 mL/min/1.73m2 . Normal Function or Mild Renal Disease, if clinically at risk: >or=60 Moderately decreased: 30 - 59 Severely decreased: 15 - 29 Renal Failure: <15 . Please note that the MDRD equation requires an additional adjustment for -Americans (multiply the GFR result by 1.210). . Glomerular Filtration Rate (GFR) is estimated based on the MDRD equation, which assumes a steady state for creatinine ([place] Int Med 139/2 137-149, 2003), as recommended by the National Kidney Disease Education Program in conjunction with the National Institutes of Health and the National Kidney Foundation. . Clinical conditions in which it may be necessary to measure GFR by using clearance methods include extremes of age and body size, severe malnutrition or obesity, diseases of skeletal muscle, paraplegia or quadriplegia, vegetarian diet, rapidly changing kidney function, and calculation of the dose of potentially toxic drugs that are excreted by the kidneys. Procedures Date CPT Code Description Status Comment 12/31/2015 Mammogram Completed 11/12/2015 11319 BX Of Skin,Tissue, Mucous Completed Ahsan 07/12/2015 07312 EKG, at Least 12 Leads Completed w/Interpretation and Report 12/14/[address] Dunbar- one polyp- benign biopsy- no actual polyp showed focal crypt changes and signs of possible prior ischemic insult- repeat due ? 2018 (path report in transferred records from Dr. Flores) 06/20/2008 60636 EKG, at Least 12 Leads Completed w/Interpretation and Report 03/09/2007 12750 Excision Of Completed Lesion(Trunk,Arm,Leg) Encounters Type Date Location Provider CPT E/M Dx Office Visit 01/03/2017 9:30a Main Office [place]KE Meeks-C [address] S40.261A Office Visit 12/16/2016 1:45p Main Office Hemanth Mederos M.D. 07688 N39.0 E83.52 F33.0 R06.83 Z11.59 Z23 Office Visit 11/10/2016 10:15a Main Office Hemanth Mederos M.D. 56028 R31.0 N39.0 E83.52 Office Visit 08/27/2016 11:30a Main Office Hemanth Mederos M.D. 86517 F33.0 E83.52 E78.00 Office Visit 07/29/2016 12:00p Main Office Hemanth Mederos M.D. G0439 Z00.01 F33.0 E78.00 E53.9 E55.9 M85.80 E04.2 Z12.31 R73.01 R06.83 R12 Office Visit 01/29/2016 1:00p Main Office Hemanth Mederos M.D. 07159 F32.9 E78.00 E53.9 E55.9 Z23 Office Visit 11/02/2015 4:15p Main Office LIBRADO Santana 48170 L23.9 Office Visit 10/15/2015 4:45p [place] [address] J06.9 H65.03 Office Visit 09/04/2015 2:00p Main Office Hemanth Mederos M.D. 15103 M25.559 M85.80 E55.9 E53.9 E78.0 Office Visit 07/12/2015 10:15a Main Office Hemanth Mederos M.D. G0438 Z00.01 F32.9 E55.9 E53.9 R73.01 M25.559 E04.2 Z12.11 Z23 Office Visit 03/27/2015 3:00p Main Office Hemanth Mederos M.D. 78997 F32.9 R63.4 Office Visit 06/13/2014 4:00p Main Office Hemanth Mederos M.D. 34809 311 Office Visit 12/22/2013 12:30p Main Office Hemanth Mederos M.D. 59856 311 Office Visit 12/22/2012 3:00p Main Office Hemanth Mederos M.D. 63956 V04.81 311 V04.81 Office Visit 02/11/2012 11:30a Main Office Hemanth Mederos M.D. 24240 311 796.2 Office Visit 02/05/2011 11:00a Main Office Hemanth Mederos M.D. 83684 311 379.90 Office Visit 07/17/2010 11:00a Main Office Hemanth Mederos M.D. 15896 311 465.9 300.02 Office Visit 03/18/2010 10:00a Main Office Hemanth Mederos M.D. 53009 311 Office Visit 02/13/2010 11:45a Main Office Hemanth Mederos M.D. 76392 311 Office Visit 05/02/2009 3:15p Main Office Hemanth Mederos M.D. 05501 311 Office Visit 06/20/2008 4:30p Main Office Hemanth Mederos M.D. 81044 311 300.02 785.1 Office Visit 11/15/2007 11:00a Main Office Hemanth Mederos M.D. 36974 311 300.02 Office Visit 03/09/2007 2:30p Main Office Hemanth Mederos M.D. 72016 709.9 311 Office Visit 02/17/2007 1:45p Main Office Hemanth Mederos M.D. 64035 311 300.02 783.1 Office Visit 11/18/2006 11:45a Main Office Fabiano Sierra 26442 112.9 782.1 Office Visit 06/30/2006 3:00p Main Office Hemanth Mederos M.D. 27819 311 300.02 Office Visit 02/25/2006 12:00p Main Office Hemanth Mederos M.D. 41477 311 300.02 Office Visit 12/24/2004 4:15p Main Office Hemanth Mederos M.D. 65354 311 Office Visit 07/09/2004 4:15p Main Office Hemanth Mederos M.D. 29760 311 Office Visit 09/26/2003 4:00p Main Office Hemanth Mederos M.D. 57955 311 Office Visit 06/28/2003 3:45p Main Office Collin Spangler M.D. 40288 311 Office Visit 11/29/2002 1:15p Main Office Hemanth Mederos M.D. 82083 311 Office Visit 06/21/2002 12:45p Main Office Hemanth Mederos M.D. 36283 311 Office Visit 12/16/2001 4:45p Main Office Hemanth Mederos M.D. 22722 311 Office Visit 10/25/2001 6:00p Main Office Hemanth Mederos M.D. 08945 381.01 Office Visit 09/13/2001 3:30p Main Office Hemanth Mederos M.D. 32037 309.28 Plan of Care Future Appointment(s):04/21/2017 1:00 pm - Hemanth Mederos M.D. at Main Jhdrww3504/07/2017 - Hemanth Mederos M.D.R31.9 Hematuria, unspecifiedComments: PT HAS RECURRENCE OF SUPRAPUBIC PRESSURE, FEELINGS OF URGENCY, FREQUENCY AND URINARY RETENTION SX, SOME GROSS HEMATURIA AGAIN. IS FEELING MUCH BETTER TODAY. DOES NOT SEEM TO BE UTI, U/A WITHOUT LEUKOCYTES. URINE CULTURE SENT. DISCUSSED NEEDS TO F/U WITH DR. PALOMO. PT AGREES. REFERRED.Follow up:. -- RE[facility] PALOMO [facility] FOR GROSS HEMATURIA AND PELVIC PAIN AGAINRecommendations:-- SEE DR. PALOMO FOR EVALUATION OF THE BLOOD IN YOUR URINE -- WE SENT YOUR URINE FOR A CULTURE - CALL THURSDAY FOR RESULTS -- NOTIFY IF FEVER OR FOSAWKWNZU48.0 Frequency of micturitionFollow up:.
--- OUTSIDE RECORDS SUMMARY | 2017-04-19 20:05 | XMS REPORT ---
:1945 External Reference #:[id number] Author Organization [facility] Address [address] [place] [address] Phone [phone] Care Team Providers Name Role Phone Hemanth Mederos M.D. Care Team Information Rn Lactation Consultant Unavailable Payers Type Date Identification Numbers Payment Provider Subscriber Medicare Primary Effective: Policy Number: Medicare - Bswnini Stout 2012 [id number] [facility] PayID: [id number] [address] [place] [address] [facility] Policy Number: [id number] [facility] Jose Elias Burk [employer] Name: [place] [address] PayID: [id number] [place] [address] Problems Date Description Provider Status Onset: 02/05/2011 [...] n/v 07/12/2015 Bee Sting active Moderate to typically large Severe local reaction, once had hives 12/16/2016 Sulfamethoxazole / active Moderate N/V, Extreme Trimethoprim Fatigue Medications Medication Date Status Form Strength Qnty SIG Indications Ordering Provider Azithromycin 03/31 Active Tablets 250mg 6tabs 2 tabs J06.9 today. 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 DS - x 7 days for Blegen, 12/14 uti- please M.D. /2016 fill now Cephalexin 11/11 Hx Tablets 500mg 21tab take 1 s tablet by Santo, - mouth three GROUND CREWMAN-C 01/28 times a day x 7 days Prednisone 11/01 Hx Tablets 20mg 10tab take 2 tabs L23.9 s by mouth Santo, - every day x GROUND CREWMAN-C 01/28 Mupirocin 11/01 Hx Ointment 2% 22gm apply a L23.9 small amount Santo, - to affected GROUND CREWMAN-C 01/28 area(s) daily Sudafed 10/14 Hx Tablets 30mg 30tab 1 tab by Sara Stone s mouth three [place]ks - times a day , 11/01 pressure Augmentin 10/14 Hx Tablets 875-125mg 14tab 1 take by Sara Stone s mouth tablet He[place]derks - every 12 , 11/01 hours for days for infection Zostavax 09/03 Hx Solution 04649Ycu/ 1unit shingles Rec 0.65ML s vaccine as P. - directed Blegen, 01/28 M.D. Calcium 500+D 12/22 Hx Tablets 500-200mg 1 PO qd -Unit P. - Blegen, 08/25 M.D. Fish Oil 02/10 Hx Capsules P. - Blegen, 01/28.D. Flaxseed Oil 02/10 Hx Capsules 1 po [...] 37.5mg 30tab 1 po qd Coretta s Javier - Gema, 05/02 F.N.P.C. Effexor 03/09 Hx Tablets 37.5mg 30tab 1 po bid x 1 Hemanth s week then 1 P. - po qd x 1 Blegen, 05/26 week then M.D. /2008 1/2 po qd x 1 week then 2 po qod x 1 week Nystatin 11/18 Hx Cream 100,000Un 30gm Apply To 112.9 Coretta /2006 its/GM Affected A. - Area bid To Gema, 07/17 tid After F.N.P.C. /2010 Cleasnsing And Drying Well Triaminicolone 11/18 Hx [...] prn P. - Allergic Blegen, 07/17 Rhinitis .D. Nasonex Nasal 10/25 Hx Inhaler 17Gra 2 Sprays Hemanth Inhaler /2001 m Each Nostril P. - Daily Blegen, 07/17 M.D. Effexor 09/13 Hx 37.5mg 30uni one po bid ts for 1 week P. - then one po Blegen, 07/09 qd for 1 M.D. /2004 wk, then one po qod for 1 week Premarin 00 Hx Tablets 0.625mg 1 PO qd Unknown /0000 - 02/05 Immunizations CPT Code Status Date Vaccine Lot # [id number] Given 12/16/2016 Influenza Vaccine High Dose PF [id number] 28769 Given 01/29/2016 Influenza Vaccine High Dose PF [id number] 03027 Given 09/04/2015 Zoster Vaccine 77424 Given 07/12/2015 Tdap (Adacel) [id number] 92610 Given 07/12/2015 Prevnar-13 Pneumococcal Conjugate Vaccine [id number] 44689 Given 01/29/2015 Influenza Virus Vaccine, Quadrivalent, 3 Yr > Quad, Preserv Free 71548 Given 01/23/2014 Pneumovax 23 (PPSV23) 65+ years or high risk 2 to 64 year old 18165 Given 12/22/2012 Influenza Vaccine-Preservative Free 3 Yrs And [id number] Above Vital Signs Date Vital Result Comment 03/31/2017 Weight 148.00 lb Weight in kg's [...] Test Date Test Result H/L Range Note Laboratory test 12/16/2016 Hepatitis C Nonreactive Nonreactive 1 finding Antibody Comp Metabolic Panel 12/16/2016 Sodium 137 mmol/L [...] 5.0 5-6 Urine Blood neg Neg Specific Crandall 1.010 1.01-1.02 Urine Ketones neg Neg Urine Bilirubin neg Neg Urine Glucose norm Norm Laboratory test finding 11/10/2016 Urine Culture And SEE RESULT BELOW 4 Sensitivities Urine DIP 11/10/2016 Leukocytes +++ Neg Urine Nitrites neg Neg Urobilinogen neg Norm Total Protein, Urine neg Neg Urine pH 7.0 High 5-6 Urine Blood 250 High Neg Specific Cr[place]all 1.000 Low 1.01-1.02 Urine Ketones neg Neg [...] ng/mL Low 30-50 Laboratory test 04/26/2015 Cytology Non-Safety Technician SEE RESULT BELOW 37 finding Laboratory test [...] neg Neg Urine Blood neg Neg Specific Crandall n/a Low 1.01-1.02 GFR (Calculated) 06/21/2008 GFR [...] (Thyrotropin) 1.48 uIU/ml 0.49 - 4.67 1 [id number] 2 Because ethnic data is not always [...] [address]: Hemanth Mederos MD Acct: [id number] Unit: [id number] AGE: 70 Location: [facility] Re12/16/16 SEX: F Status: REG REF SPEC: [id number] SULLY: 12/16/16-1443 [facility] DR: Hemanth Mederos MD REQ: [id number] RECD: 12/16/16 STATUS: KYLIE FERNÁNDEZ DR: Hardeep Palomo MD _ SOURCE: URINE SPDESC: ORDERED: Urine Culture COMMENTS: Copy Result to: HARDEEP PALOMO ([id number]) Urine Source: Random Procedure Result Reported Site Urine Culture Final 12/18/16- 1916 ML No Growth (<1,000 CFU/mL) * ML - MAIN LAB ([facility]) . END OF REPORT * ML=Testing performed at Main Lab DEPARTMENT OF PATHOLOGY, [address] [place] [address] Huang Multani M.D. Director [facility] # [id number] 4 SEE RESULT BELOW Name: LUDIVINA STOUT : [address]: Hemanth Mederos MD Acct: [id number] Unit: [id number] AGE: 70 Location: [facility] Re11/10/16 SEX: F Status: REG REF SPEC: [id number] SULLY: 11/10/16-[address]: Hemanth Mederos MD REQ: [id number] RECD: 11/10/166732 STATUS: COMP _ SOURCE: URINE SPDESC: ORDERED: Urine Culture COMMENTS: [id number] Urine Source: Random Procedure Result Reported Site Urine Culture Final 11/12/16- 0851 ML Organism 1 ESCHERICHIA COLI [place] Count 75-100,000 (Many) CFU/ML 1. ESCHERICHIA COLI [...] any additional antibiotic reporting. * ML - MAIN LAB ([facility]) . END OF REPORT * ML=Testing performed at Main Lab DEPARTMENT OF PATHOLOGY, [address] [place] [address] Huang Multani M.D. Director [facility] # [id number] 5 REFERENCE VALUE Not present Test Performed by: [facility] [address] [place] [address] 6 [id number] 7 [id number] 8 [id number] 9 Normal Range 180 to 914 Indeterminate [...] 160-189 mg/dL Very High: >189 mg/dL 15 [id number] 16 [id number] 17 [id number] 18 [id number] 19 Test Performed by: [facility] [address] [place] [address] 20 Normal Range 180 to 914 Indeterminate Range 145 to 180 Deficient Range <145 21 [id number] 22 PT IS FASTING 23 Desirable <150 [...] and in selective patients <6.0%.Please refer to [employer] Diabetic care guidelines for further information. 29 SEE RESULT BELOW Name: LUDIVINA STOUT : [address]: Nataly Richardson NP Acct: [id number] Unit: [id number] AGE: 69 Location: [facility] Re11/12/15 SEX: F Status: REG REF SPEC: [id number] SULLY: 11/12/15 [facility] DR: Nataly Richardson NP REQ: [id number] RECD: 11/13/15 STATUS: SOUT _ ORDERED: PASS STAIN, [facility], LEVEL IV COMMENTS: [id number] FINAL DIAGNOSIS Skin, left thigh, biopsy: -- [...] performed at Main Lab DEPARTMENT OF PATHOLOGY, [address] [place] [address] Huang Multani M.D. Director [facility] # [id number] 30 Therapeutic target for the treatment of diabetes Mellitus patients is <7% HBA1C, and in selective patients <6.0%.Please refer to [employer] Diabetic care guidelines for further [...] [address]: Fausto Ramesh MD Acct: [id number] Unit: [id number] AGE: 69 Location: THYROID Re04/26/15 SEX: F Status: REG REF SPEC: [id number] SULLY: 04/26/15-1145 [facility] DR: Dayo Jeffers MD REQ: [id number] RECD: 04/26/15-1199 STATUS: BARBI FERNÁNDEZ DR: Fausto Mederos MD _ ORDERED: FN ASP DEEP, FNA IMMEDIATE S FINAL DIAGNOSIS Thyroid, right upper pole, Ultrasound guided, fine needle aspiration: Benign thyroid nodule- colloid/hyperplastic type. (Vaughn Class II). The specimen demonstrates moderate watery [...] performed at Main Lab DEPARTMENT OF PATHOLOGY, [address] [place] [address] Huang Multani M.D. Director [facility] # [id number] RUN DATE: 04/26/15 [facility] LAB LIVE PAGE 2 Patient: LUDIVINA STOUT [id number] (Continued) GROSS DESCRIPTION (Continued) GROSS DESCRIPTION 4- alcohol fixed slide(s) 1 - passes Signed (signature on file) Silvia Diaz MD 1208 END OF REPORT * ML=Testing performed at Main Lab DEPARTMENT OF PATHOLOGY, [address] [place] [address] Huang Multani M.D. Director [facility] # [id number] 38 RESULT: No apparent monoclonal protein on serum electrophoresis. Test Performed by: [address] [address] Safety Technician: Aryan Hemphill II, M.D., Ph.D. 39 ADDITIONAL INFORMATION The thyroglobulin antibody testing method is an immunoenzymatic assay manufactured by [employer] and performed on the [employer] DXI 800. Values obtained from different assay methods or kits may be different and cannot be used interchangeably. The results cannot be interpreted as absolute evidence for the presence or absence of malignant disease. Test Performed by: [address] [address] Safety Technician: Aryan Hemphill II, M.D., Ph.D. 40 Normal [...] that are excreted by the kidneys. 44 [employer], [employer] DEPARTMENT OF PATHOLOGY or Extension 8283 SURGICAL PATHOLOGY REPORT PATIENT: LUDIVINA STOUT : 1945 AGE: 61 Y SEX: F ACCT: [id number] PROCEDURE DATE: 03/09/2007 DATE RECEIVED: 03/10/2007 REQUESTING PHYSICIAN: HEMANTH MEDEROS MD LOCATION: [facility] Case No. [id number] FINAL DIAGNOSIS: SKIN, EXCISION LESION OF MID UPPER BACK: 1. 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 2. NO DIAGNOSTIC FUNGAL ORGANISMS IDENTIFIED UPON PAS FUNGAL STAIN. LDM/kb D GROSS DESCRIPTION: Received in formalin, labeled with the patient's name Ludivina Stuot and also labeled with the lab reference #[id number], consists of a 0.4 x 0.4 x 0.2 cm off-white ragged punched segment of skin with an off center stretching to the margin 0.25 x 0.15 cm brown-white granular friable keratotic unevenly raised papule. The margin is painted with black ink. Totally submitted in one cassette. AP/kb D CLINICAL DATA: 17649 NONE PROVIDED SPECIMEN SUBMITTED: LESION, MID UPPER BACK ADDITIONAL COPIES SENT TO: Electronically Signed by: Signed Date MILDRED KEITA MD PATHOLOGIST 03/11/2007 15:31 Performed @ [facility], [address] [place] [address] 45 Greater than or equal to 211 [...] Description Status Comment 12/31/2015 Mammogram Completed 11/12/2015 92118 BX Of Skin,Tissue, Mucous Completed Ahsan 07/12/2015 27382 EKG, at Least 12 Leads Completed w/Interpretation and Report 12/14/[address] Dunbar- one polyp- benign biopsy- no actual polyp showed focal crypt changes and signs of possible prior ischemic insult- repeat due ? 2018 (path report in transferred records from Dr. Flores) 06/20/2008 85777 EKG, at Least 12 Leads Completed w/Interpretation and Report 03/09/2007 94559 Excision Of Completed Lesion(Trunk,Arm,Leg) Encounters Type Date Location Provider CPT E/M Dx Office Visit 01/03/2017 9:30a Main Office Mundo Andino [facility] 69142 S40.261A Office Visit 12/16/2016 1:45p Main Office Hemanth Mederos M.D. 85306 N39.0 E83.52 F33.0 R06.83 Z11.59 Z23 Office Visit 11/10/2016 10:15a Main Office Hemanth Mederos M.D. 22382 R31.0 N39.0 E83.52 Office Visit 08/27/2016 11:30a Main Office Hemanth Mederos M.D. 89658 F33.0 E83.52 E78.00 Office Visit 07/29/2016 12:00p Main Office Hemanth Mederos M.D. G0439 Z00.01 F33.0 E78.00 E53.9 E55.9 M85.80 E04.2 Z12.31 R73.01 R06.83 R12 Office Visit 01/29/2016 1:00p Main Office Hemanth Mederos M.D. 84153 F32.9 E78.00 E53.9 E55.9 Z23 Office Visit 11/02/2015 4:15p Main Office Nataly Zelayakelvey, [facility] 15644 L23.9 Office Visit 10/15/2015 4:45p [place] [address] J06.9 H65.03 Office Visit 09/04/2015 2:00p Main Office Hemanth Mederos M.D. 74292 M25.559 M85.80 E55.9 E53.9 E78.0 Office Visit 07/12/2015 10:15a Main Office Hemanth Mederos M.D. G0438 Z00.01 F32.9 E55.9 E53.9 R73.01 M25.559 E04.2 Z12.11 Z23 Office Visit 03/27/2015 3:00p Main Office Hemanth Mederos M.D. 97305 F32.9 R63.4 Office Visit 06/13/2014 4:00p Main Office Hemanth Mederos M.D. 45928 311 Office Visit 12/22/2013 12:30p Main Office Hemanth Mederos M.D. 11981 311 Office Visit 12/22/2012 3:00p Main Office Hemanth Mederos M.D. 81384 V04.81 311 V04.81 Office Visit 02/11/2012 11:30a Main Office Hemanth Mederos M.D. 10060 311 796.2 Office Visit 02/05/2011 11:00a Main Office Hemanth Mederos M.D. 84437 311 379.90 Office Visit 07/17/2010 11:00a Main Office Hemanth Mederos M.D. 90470 311 465.9 300.02 Office Visit 03/18/2010 10:00a Main Office Hemanth Mederos M.D. 81351 311 Office Visit 02/13/2010 11:45a Main Office Hemanth Mederos M.D. 23030 311 Office Visit 05/02/2009 3:15p Main Office Hemanth Mederos M.D. 24016 311 Office Visit 06/20/2008 4:30p Main Office Hemanth Mederos M.D. 65699 311 300.02 785.1 Office Visit 11/15/2007 11:00a Main Office Hemanth Mederos M.D. 30852 311 300.02 Office Visit 03/09/2007 2:30p Main Office Hemanth Mederos M.D. 05779 709.9 311 Office Visit 02/17/2007 1:45p Main Office Hemanth Mederos M.D. 04186 311 300.02 783.1 Office Visit 11/18/2006 11:45a Main Office Fabiano Sierra 53303 112.9 782.1 Office Visit 06/30/2006 3:00p Main Office Hemanth Mederos M.D. 44491 311 300.02 Office Visit 02/25/2006 12:00p Main Office Hemanth Mederos M.D. 62266 311 300.02 Office Visit 12/24/2004 4:15p Main Office Hemanth Mederos M.D. 72263 311 Office Visit 07/09/2004 4:15p Main Office Hemanth Mederos M.D. 45981 311 Office Visit 09/26/2003 4:00p Main Office Hemanth Mederos M.D. 08136 311 Office Visit 06/28/2003 3:45p Main Office Collin Spangler M.D. 14153 311 Office Visit 11/29/2002 1:15p Main Office Hemanth Mederos M.D. 57922 311 Office Visit 06/21/2002 12:45p Main Office Hemanth Mederos M.D. 33022 311 Office Visit 12/16/2001 4:45p Main Office Hemanth Mederos M.D. 93470 311 Office Visit 10/25/2001 6:00p Main Office Hemanth Mederos M.D. 59201 381.01 Office Visit 09/13/2001 3:30p Main Office Hemanth Mederos M.D. 08600 309.28 Plan of Care Future Appointment(s):04/21/2017 1:00 pm - Hemanth Mederos M.D. at Main [facility]2303/31/2017 - Izabel Pritchard, NPJ06.9 Acute upper respiratory infection, unspecifiedNew Medication:Azithromycin 250 mgFlonase Allergy Relief 50 mcg/ ActComments:Rapid strep negative.No acute concerns today.Due to assessment and duration of illness, antibiotics ordered. Discussed med, action, side effects, proper usePatient also provided with Flonase. Discussedmed, action, side effects , proper useEducated on supportive care including rest, fluids, humification, and ibuprofen/Tylenol. Educated on new/worsening symptoms and when to call/ return. Patient stated understanding and agrees to plan
--- NOTE | 2017-04-19 22:08 | ED ---
Laceration/Wound HPI - HPI Summary HPI Summary: 71F presents with right pinky laceration. She was doing dishes and a glass broke and she cut her hand on the glass. She denies any foreign body in the wound. the area continues to ooze. She believes her tetanus is up to date. She denies any numbness or tingling. She has full ROM. She is right handed. - History of Current Complaint Stated Complaint: RT HAND LAC Time Seen by Provider: 04/19/17 20:44 Pain Intensity: 6 - Allergy/Home Medications Allergies/Adverse Reactions: Allergies Allergy/AdvReac Type Severity Reaction Status Date / Time Codeine Allergy Intermediate Vomiting Verified 04/19/17 19:57 Sulfa Antibiotics Allergy Nausea And Verified 04/19/17 19:57 Vomiting PMH/Surg Hx/FS Hx/Imm Hx Endocrine/Hematology History: Denies: Hx Anticoagulant Therapy, Hx Diabetes, Hx Anemia Cardiovascular History: Denies: Hx Myocardial Infarction GI History: Denies: Hx Jaundice Musculoskeletal History: Denies: Hx Osteoporosis - Surgical History Surgery Procedure, Year, and Place: hysterectomy Infectious Disease History: No Infectious Disease History: Denies: Traveled Outside the [place] in Last 30 Days - Family History Known Family History: Positive: Hypertension - Social History Alcohol Use: None Substance Use Type: Reports: None Smoking Status (MU): Never Smoked Tobacco Review of Systems Negative: Fever Negative: Chest Pain Negative: Shortness Of Breath Positive: Other - laceration right pinky All Other Systems Reviewed And Are Negative: Yes Physical Exam Triage Information Reviewed: Yes Vital Signs On Initial Exam: Initial Vitals Temp Pulse Resp BP Pulse Ox 98.1 F 71 18 141/77 98 04/19/17 19:53 04/19/17 19:53 04/19/17 19:53 04/19/17 19:53 04/19/17 19:53 Vital Signs Reviewed: Yes Appearance: Positive: Well-Appearing Skin: Positive: Warm, Dry, Other - 1 1/2cm by 1/2cm Head/Face: Positive: Normal Head/Face Inspection Eyes: Positive: Normal, Conjunctiva Clear Respiratory/Lung Sounds: Positive: Clear to Auscultation, Breath Sounds Present Cardiovascular: Positive: Normal, RRR Musculoskeletal: Positive: Strength/ROM Intact - right pinky, Other - capillary refill<2 secs, sensation grossly intact Neurological: Positive: Normal Psychiatric: Positive: Normal - Patricia Coma Scale Coma Scale Total: 15 Procedures - Laceration/Wound Repair 1 Location: Other - right pinky finger Description: Irregular Anesthesia: Local, 1.0% Length, Depth and Shape: 1 1/2cm by 1/2cm Irrigated w/ Saline (ccs): 150 Laceration/Wound Explored: no foreign body removed Closure: Single Layer Suture Type: Prolene - 4-0 Number of Sutures: 4 Layer Closure?: No Sterile Dressing Applied?: Yes - telfa and metal finger splint Diagnostics - Vital Signs Vital Signs Temp Pulse Resp BP Pulse Ox 04/19/17 19:53 98.1 F 71 18 141/77 98 - Laboratory Lab Statement: Any lab studies that have been ordered have been reviewed, and results considered in the medical decision making process. Laceration Repair Course/Dx - Course Course Of Treatment: 71F presents with right pinky laceration. She was doing dishes and a glass broke and she cut her hand on the glass. She denies any foreign body in the wound. the area continues to ooze. She believes her tetanus is up to date. She denies any numbness or tingling. She has full ROM. She is right handed. on exam has 2 cm laceration near MCP joint of right pinky. neurovascular intact. placed 4 sutures after cleaned wound and placed metal splint on area. patient understand and agrees with plan. - Differential Dx Differental Diagnoses: Abrasion, Avulsion, Laceration - Clinical Impression Provider Diagnoses: Laceration of right hand Discharge - Discharge Plan Condition: Good Disposition: HOME Patient Education Materials: Care For Your Stitches (ED) Referrals: Martha Mederos MD [Primary Care Provider] - Additional Instructions: Keep area in splint for 5 days, change dressing once a day Keep area clean and dry for 24 hours Take Tylenol for pain every 6 hours Return to ED or primary for suture removal in 10-14 days Return to ED if develop signs of infection such as fever, spreading redness, or pus formation
[2017-04-19 22:35] VITALS: BP 124/67
== END | disposition home or self-care (01) ==
LOC: ED 19:50
DX: S61.216A Laceration without foreign body of right little finger without damage to nail, initial encounter (principal); W25.XXXA Contact with sharp glass, initial encounter; Y92.9 Unspecified place or not applicable
CPT/HCPCS: 12001; 96374; 99282